=== PATIENT | male | born 1945 | race Caucasian/White ===

== ENCOUNTER 2017-06-26 17:24 | Emergency (ER) | payer MEDICARE ==
[2017-06-26 17:49] LABS: BASOPHILS 0.3 % (0-2); EOSINOPHILS 3.6 % (0-7); HEMATOCRIT 39.9 % (42.0-54.0); HEMOGLOBIN 13.2 g/dL (13.5-17.5); IMMATURE GRANULOCYTES 0.1 % (0-5); LYMPHOCYTES 24.9 % (15-50); MCH 31.6 pg (26.0-34.0); MCHC 33.1 g/dL (31.0-37.0); MCV 95.5 fL (80.0-100.0); MEAN PLATELET VOLUME 8.7 fL (7.4-10.4); MONOCYTES 8.1 % (2-11); RBC 4.18 10x6/uL (4.20-6.10); RDW 13.3 % (11.5-14.5); WBC 7.2 10x3/uL (4.8-10.8)
[2017-06-26 18:08] LABS: ALBUMIN 3.1 g/dL (3.4-5.0); ANION GAP 8.5 mmol/L (8-16); BILIRUBIN - TOTAL 0.5 mg/dL (0.2-1.3); CALCIUM 8.5 mg/dL (8.5-10.1); CARBON DIOXIDE 30.5 mmol/L (21.0-32.0); CREATININE - SERUM 1.4 mg/dL (0.6-1.3); PLATELET COUNT 182 10x3/uL (130-400); PROTEIN - SERUM 6.9 g/dL (6.4-8.2)
[2017-06-26 18:28] LABS: APPEARANCE CLEAR (CLEAR); COLOR YELLOW (YELLOW)
[2017-06-26 18:29] LABS: BILIRUBIN NEGATIVE (NEGATIVE); GLUCOSE NEGATIVE (NEGATIVE); KETONE NEGATIVE (NEGATIVE); NITRITE NEGATIVE (NEGATIVE); PROTEIN NEGATIVE (NEGATIVE); UROBILINOGEN NORMAL (NORMAL)
[2017-09-23 16:23] VITALS: BMI 41.8
== END 2017-06-26 19:14 | disposition home or self-care (01) ==
LOC: D.ER 17:24
PROVIDERS: Nurse Practitioner Acute Care
DX: S43.401A Unspecified sprain of right shoulder joint, initial encounter (principal); W19.XXXA Unspecified fall, initial encounter; Y93.89 Activity, other specified; Y92.029 Unspecified place in mobile home as the place of occurrence of the external cause; I10 Essential (primary) hypertension; B19.20 Unspecified viral hepatitis C without hepatic coma; E11.9 Type 2 diabetes mellitus without complications; F17.200 Nicotine dependence, unspecified, uncomplicated

== ENCOUNTER 2017-09-14 17:28 | Emergency (ER) | payer MEDICARE ==
[2017-09-23 16:23] VITALS: BMI 41.8
== END 2017-09-14 19:44 | disposition home or self-care (01) ==
LOC: D.ER 17:28
DX: G89.4 Chronic pain syndrome (principal); M25.512 Pain in left shoulder; M25.511 Pain in right shoulder; M54.9 Dorsalgia, unspecified; R10.9 Unspecified abdominal pain; I10 Essential (primary) hypertension; B19.20 Unspecified viral hepatitis C without hepatic coma; E11.9 Type 2 diabetes mellitus without complications

== ENCOUNTER 2017-09-22 00:17 | Emergency (ER) | payer MEDICARE, OTHER ==
[2017-09-22 01:13] LABS: BASOPHILS 0.1 % (0-2); EOSINOPHILS 2.3 % (0-7); HEMATOCRIT 42.8 % (42.0-54.0); HEMOGLOBIN 13.7 g/dL (13.5-17.5); IMMATURE GRANULOCYTES 0.3 % (0-5); LYMPHOCYTES 13.3 % (15-50); MCH 30.4 pg (26.0-34.0); MCV 95.1 fL (80.0-100.0); MEAN PLATELET VOLUME 8.9 fL (7.4-10.4); MONOCYTES 5.7 % (2-11); NEUTROPHILS 78.3 % (40-80); RDW 13.9 % (11.5-14.5); WBC 11.6 10x3/uL (4.8-10.8)
[2017-09-22 01:16] LABS: PLATELET COUNT 254 10x3/uL (130-400)
[2017-09-22 01:26] LABS: ALBUMIN 3.2 g/dL (3.4-5.0); ANION GAP 10.2 mmol/L (8-16); BILIRUBIN - TOTAL 0.63 mg/dL (0.2-1.3); CALCIUM 8.4 mg/dL (8.5-10.1); CARBON DIOXIDE 29.8 mmol/L (21.0-32.0); CREATININE - SERUM 1.4 mg/dL (0.6-1.3); PROTEIN - SERUM 6.8 g/dL (6.4-8.2)
[2017-09-23 16:23] VITALS: BMI 41.8
== END 2017-09-22 02:00 | disposition home or self-care (01) ==
LOC: D.ER 00:17
PROVIDERS: Physician Assistant Medical
DX: J06.9 Acute upper respiratory infection, unspecified (principal); J20.9 Acute bronchitis, unspecified; E11.9 Type 2 diabetes mellitus without complications; I10 Essential (primary) hypertension; B19.20 Unspecified viral hepatitis C without hepatic coma

== ENCOUNTER 2017-09-23 00:52 | Inpatient (IN) | payer MEDICARE, OTHER ==
[~2017-09-23] VITALS: Ht 172.7 cm; Wt 131.6 kg
--- NOTE | ~2017-09-23 | CN ---
PATIENT NAME:POPPY ARRIAGA MEDICAL RECORD: [id number] : 49 LOCATION:D. D.2139 ADMIT DATE: 09/23/17 ACCOUNT: [id number] CONSULTING PHYSICIAN: JD MCDANIEL III, MD REFERRING PHYSICIAN: MARTA ZAMAN MD DATE OF CONSULTATION: 09/27/2017 FINDINGS: A 72-year-old male admitted on the with evidence of chronic obstructive pulmonary disease, influenza and altered mental status. The patient has been treated with nebulizers and steroids. He is showing considerable improvement in terms of pulmonary status. COMORBIDITIES: Include hypertension, hyperlipidemia, type 2 diabetes, GERD. At the time of admission, the patient was apparently confused and shows some lability of affect. Notes indicate now the patient is clearing considerably. There does not appear to be a need for psychiatric intervention. ASSESSMENT: Probable subacute delirium - resolving. PLAN: Continue with ongoing medical care. Notify if mental status worsens. TRANSINT:[id number] Voice Confirmation ID: [id number] DOCUMENT ID: [id number] JD MCDANIEL III, MD at 1053 CC: [id number] DICTATION DATE: 09/27/17 1319 SENIOR QUALITY ASSURANCE ANALYST: 09/27/17 1357 ADM IN [facility] [address] [place] [address]
--- NOTE | ~2017-09-23 | EC ---
PATIENT:POPPY ARRIAGA DATE OF SERVICE: 09/23/17 SEX: M MEDICAL RECORD: [id number] DATE OF : 49 LOCATION:D.M2 D.213 AGE OF PATIENT: 72 ADMISSION DATE: 09/23/17 REFERRING PHYSICIAN: INTERPRETING PHYSICIAN: BISHNU CRUZ MD ECHOCARDIOGRAM REPORT ECHO CHARGES 4 ECHO COMPLETE CLINICAL DIAGNOSIS: SOB ECHOCARDIOGRAPHIC MEASUREMENTS (adult normal given) AC root (d.<3.7cm) 3.8 cm LV Septum d (<1.2 cm> 1.5 cm Valve Excursion 1.6 cm LV Septum (systole) 1.9 cm Left Atria (s.<4.0cm> 3.7 cm LVPW d(<1.2cm) 1.9 cm RV (d.<2.3cm) 3.7 cm LVPW (sytole) 2.1 cm LV diastole(<5.6CM) 5.2 cm MV E-F(>70mm/sec) cm LV systole 4.1 cm LVOT Diameter 1.8 cm MV exc.(>10mm) cm Est.ejection fraction (50-75%) % Pericardial Effusion N DOPPLER: LVIT cm/sec A 96.0 cm/sec E 68.0 cm/sec LA cm/sec RVSP mmHg LVOT 85 cm/sec AOP1/2T m/s Asc. Ao 153 cm/sec RVOT cm/sec RA cm/sec PA cm/sec AV Gradient Peak 9.34 mmHg AV Mean 4.88 mmHg AV Area 2.2 cm MV Gradient Peak 6.99 mmHg MV Mean 2.48 mmHg MV Area cm COMMENTS: Charter Boat Captain: Fabrice MENDIOLA Auto Engine Mechanic: Fabrice Joshua TAPE# PACS DATE OF SERVICE: 09/24/2017 Echocardiogram FINDINGS: 1. Left ventricular chamber size is within normal limits. Left ventricular systolic function is normal. Overall ejection fraction estimated at 55%. 2. Left atrium, right atrium, and right ventricular chamber sizes are within normal limits. 3. Valvular structures have normal structure and motion. ECHOCARDIOGRAM REPORT [id number] POPPY ARRIAGA 4. Doppler interrogation reveals no significant valvular insufficiency or stenosis. 5. No evidence of pericardial effusion or left ventricular thrombus. TRANSINT:[id number] Voice Confirmation ID: [id number] DOCUMENT ID: [id number] BISHNU CRUZ MD at 1025 CC: [id number] DICTATION DATE: 09/24/17 1354 SHRIMPING BOAT CAPTAIN: 09/24/17 1439 ADM IN [place] [id number] [place] [address]
[2017-09-23 01:50] LABS: BASOPHILS 0.1 % (0-2); EOSINOPHILS 0.1 % (0-7); HEMATOCRIT 42.6 % (42.0-54.0); IMMATURE GRANULOCYTES 0.2 % (0-5); LYMPHOCYTES 7.9 % (15-50); MCH 31.1 pg (26.0-34.0); MCHC 32.9 g/dL (31.0-37.0); MCV 94.7 fL (80.0-100.0); MEAN PLATELET VOLUME 9.4 fL (7.4-10.4); MONOCYTES 5.4 % (2-11); NEUTROPHILS 86.3 % (40-80); PLATELET COUNT 277 10x3/uL (130-400); RDW 13.8 % (11.5-14.5)
[2017-09-23 01:55] LABS: APPEARANCE CLEAR (CLEAR); BILIRUBIN NEGATIVE (NEGATIVE); COLOR YELLOW (YELLOW); GLUCOSE NEGATIVE (NEGATIVE); KETONE NEGATIVE (NEGATIVE); NITRITE NEGATIVE (NEGATIVE); PROTEIN TRACE mg/dL (NEGATIVE); SPECIFIC GRAVITY 1.015 (1.005-1.020); UROBILINOGEN NORMAL (NORMAL)
[2017-09-23 02:08] LABS: ALBUMIN 3.2 g/dL (3.4-5.0); ALKALINE PHOSPHATASE 98 U/L (46-116); ALT (SGPT) 27 U/L (10-68); BILIRUBIN - TOTAL 0.38 mg/dL (0.2-1.3); CALC OSMOLALITY 283 mosm/kg (275-300); CALCIUM 8.9 mg/dL (8.5-10.1); CHLORIDE - SERUM 101 mmol/L (98-107); CREATININE - SERUM 1.3 mg/dL (0.6-1.3); GLUCOSE 146 mg/dL (74-106); PROTEIN - SERUM 7.2 g/dL (6.4-8.2); SODIUM 138 mmol/L (136-145); UREA NITROGEN 26 mg/dL (7-18); eGFR NON AFRICAN AMERICAN 58 mL/min (90-120)
[2017-09-23 02:23] LABS: CKMB 2.8 U/L (0.0-3.6); CREATINE KINASE 64 UL (21-232); PRO BNP 823 pg/mL (0-125); TROPONIN-I < 0.017 ng/mL (0.000-0.060)
[2017-09-23 07:26] VITALS: BP 168/78; BMI 41.9
[2017-09-23 08:07] VITALS: BP 168/78
[2017-09-23 11:10] VITALS: BP 160/76
[2017-09-23 13:05] VITALS: BMI 41.8
[2017-09-23 15:27] VITALS: BP 168/87
[2017-09-23 16:23] VITALS: Ht 172.7 cm; Wt 131.6 kg
[2017-09-23 20:00] VITALS: BP 175/90
[2017-09-24] VITALS: BP 150/73
[2017-09-24 04:00] VITALS: BP 152/80
[2017-09-24 06:43] LABS: BASOPHILS 0 % (0-2); EOSINOPHILS 0 % (0-7); HEMATOCRIT 41.7 % (42.0-54.0); HEMOGLOBIN 13.6 g/dL (13.5-17.5); IMMATURE GRANULOCYTES 0.5 % (0-5); LYMPHOCYTES 6.4 % (15-50); MCH 30.8 pg (26.0-34.0); MCHC 32.6 g/dL (31.0-37.0); MCV 94.3 fL (80.0-100.0); MEAN PLATELET VOLUME 9.6 fL (7.4-10.4); MONOCYTES 2.3 % (2-11); NEUTROPHILS 90.8 % (40-80); PLATELET COUNT 292 10x3/uL (130-400); RBC 4.42 10x6/uL (4.20-6.10); WBC 13.3 10x3/uL (4.8-10.8)
[2017-09-24 06:47] LABS: HEMOGLOBIN A1C 6.1 % (4.8-6.0)
[2017-09-24 07:01] LABS: ANION GAP 12.9 mmol/L (8-16); BILIRUBIN - TOTAL 0.35 mg/dL (0.2-1.3); CALCIUM 8.6 mg/dL (8.5-10.1); CHOL - HDL RATIO 3.4 ratio (2.3-4.9); CREATININE - SERUM 1.3 mg/dL (0.6-1.3); LDL-HDL RATIO 2.2 ratio (1.5-3.5); MAGNESIUM - SERUM 2.3 mg/dL (1.8-2.4); POTASSIUM - SERUM 3.9 mmol/L (3.5-5.1); PROTEIN - SERUM 6.8 g/dL (6.4-8.2)
[2017-09-24 07:48] VITALS: BP 167/91
[2017-09-24 11:39] VITALS: BP 169/87
[2017-09-24 16:42] VITALS: BP 152/81
[2017-09-24 19:00] VITALS: BP 181/85
[2017-09-25 04:00] VITALS: BP 174/78
[2017-09-25 07:10] LABS: BASOPHILS 0 % (0-2); EOSINOPHILS 0 % (0-7); HEMATOCRIT 42.7 % (42.0-54.0); HEMOGLOBIN 14.1 g/dL (13.5-17.5); IMMATURE GRANULOCYTES 0.4 % (0-5); LYMPHOCYTES 5.3 % (15-50); MCH 30.9 pg (26.0-34.0); MCV 93.4 fL (80.0-100.0); MEAN PLATELET VOLUME 9.3 fL (7.4-10.4); MONOCYTES 3.5 % (2-11); NEUTROPHILS 90.8 % (40-80); PLATELET COUNT 281 10x3/uL (130-400); RBC 4.57 10x6/uL (4.20-6.10); WBC 12.3 10x3/uL (4.8-10.8)
[2017-09-25 07:20] LABS: CALCIUM 8.7 mg/dL (8.5-10.1); CARBON DIOXIDE 28.9 mmol/L (21.0-32.0); CREATININE - SERUM 1.3 mg/dL (0.6-1.3); POTASSIUM - SERUM 3.9 mmol/L (3.5-5.1)
[2017-09-25 08:26] VITALS: BP 172/89
[2017-09-25 11:40] VITALS: BP 193/87
[2017-09-25 16:11] VITALS: BP 208/110
[2017-09-25 19:00] VITALS: BP 182/85
[2017-09-26 01:00] VITALS: BP 164/75
[2017-09-26 03:34] VITALS: BP 175/80
[2017-09-26 06:25] LABS: BASOPHILS 0.1 % (0-2); EOSINOPHILS 0 % (0-7); HEMATOCRIT 41.1 % (42.0-54.0); HEMOGLOBIN 13.6 g/dL (13.5-17.5); IMMATURE GRANULOCYTES 0.5 % (0-5); MCH 30.6 pg (26.0-34.0); MCHC 33.1 g/dL (31.0-37.0); MCV 92.4 fL (80.0-100.0); MEAN PLATELET VOLUME 9.4 fL (7.4-10.4); MONOCYTES 4.5 % (2-11); NEUTROPHILS 88.9 % (40-80); PLATELET COUNT 240 10x3/uL (130-400); RBC 4.45 10x6/uL (4.20-6.10); WBC 10.2 10x3/uL (4.8-10.8)
[2017-09-26 06:48] LABS: PHOSPHOROUS 3.2 mg/dL (2.5-4.9)
[2017-09-26 06:49] LABS: CALCIUM 8.5 mg/dL (8.5-10.1); CARBON DIOXIDE 24.8 mmol/L (21.0-32.0); CREATININE - SERUM 1.4 mg/dL (0.6-1.3); POTASSIUM - SERUM 3.8 mmol/L (3.5-5.1)
[2017-09-26 08:32] VITALS: BP 199/108
[2017-09-26 11:24] VITALS: BP 165/93
[2017-09-26 15:46] VITALS: BP 175/91
[2017-09-26 20:00] VITALS: BP 123/104
[2017-09-27] VITALS: BP 146/73
[2017-09-27 07:55] VITALS: BP 137/77
[2017-09-27 12:00] VITALS: BP 146/61
[2017-09-27 16:17] VITALS: BP 150/70
[2017-09-27] MEDS ORDERED: ASPIRIN81 MG PO (17:51)
[2017-09-27] MEDS ORDERED: TESSALON PERLE100 MG PO (17:52)
[2017-09-27] MEDS ORDERED: SURFAK240 MG PO (17:52)
[2017-09-27] MEDS ORDERED: CYCLOBENZAPRINE10 MG PO (17:52)
[2017-09-27] MEDS ORDERED: GLIMEPIRIDE2 MG PO (17:53)
[2017-09-27] MEDS ORDERED: FUROSEMIDE40 MG PO (17:53)
[2017-09-27] MEDS ORDERED: HYDROCODON-ACE1 EAC7 PO (17:55)
[2017-09-27] MEDS ORDERED: ZESTORETIC 10/11 TAB PO (18:07)
[2017-09-27] MEDS ORDERED: GLUCOPHAGE1000 MG PO (18:09)
[2017-09-27] MEDS ORDERED: NAPROSYN500 MG PO (18:09)
[2017-09-27] MEDS ORDERED: CLARITIN-D1 TAB.SR . PO (18:09)
[2017-09-27] MEDS ORDERED: OMEPRAZOLE20 M1 PO (18:10)
[2017-09-27] MEDS ORDERED: OXYCONTIN10 MG PO (18:10)
[2017-09-27] MEDS ORDERED: ZOCOR10 MG PO (18:11)
[2017-09-27] MEDS ORDERED: ULTRAM50 MG PO (18:11)
[2017-09-27] MEDS ORDERED: VALIUM 2 MG TAB2 MG PO (18:12)
[2017-09-27 19:00] VITALS: BP 195/109
[2017-09-28 04:00] VITALS: BP 172/92
[2017-09-28 06:30] LABS: BASOPHILS 0.4 % (0-2); EOSINOPHILS 2.5 % (0-7); HEMATOCRIT 41.5 % (42.0-54.0); HEMOGLOBIN 13.5 g/dL (13.5-17.5); IMMATURE GRANULOCYTES 0.8 % (0-5); LYMPHOCYTES 27.9 % (15-50); MCH 30.8 pg (26.0-34.0); MCHC 32.5 g/dL (31.0-37.0); MCV 94.7 fL (80.0-100.0); MEAN PLATELET VOLUME 9.5 fL (7.4-10.4); MONOCYTES 7.5 % (2-11); NEUTROPHILS 60.9 % (40-80); RBC 4.38 10x6/uL (4.20-6.10); RDW 14.3 % (11.5-14.5); WBC 10.7 10x3/uL (4.8-10.8)
[2017-09-28 06:51] LABS: PLATELET COUNT 191 10x3/uL (130-400)
[2017-09-28 06:56] LABS: ANION GAP 12.7 mmol/L (8-16); CREATININE - SERUM 1.3 mg/dL (0.6-1.3); POTASSIUM - SERUM 3.7 mmol/L (3.5-5.1)
[2017-09-28 08:46] VITALS: BP 161/94
[2017-09-28 11:23] VITALS: BP 162/80
[2017-09-28 15:39] VITALS: BP 166/83
[2017-09-28 18:10] LABS: AEROBE ID Final report (())
[2017-09-28 20:00] VITALS: BP 150/88
[2017-09-29] VITALS: BP 143/82
[2017-09-29 04:00] VITALS: BP 179/98
[2017-09-29 08:28] VITALS: BP 149/80
[2017-09-29 11:38] VITALS: BP 142/80
[2017-09-29 12:35] LABS: BASOPHILS 0.1 % (0-2); EOSINOPHILS 0.7 % (0-7); HEMATOCRIT 43.2 % (42.0-54.0); HEMOGLOBIN 14.1 g/dL (13.5-17.5); IMMATURE GRANULOCYTES 0.6 % (0-5); LYMPHOCYTES 11.3 % (15-50); MCH 30.7 pg (26.0-34.0); MCHC 32.6 g/dL (31.0-37.0); MCV 94.1 fL (80.0-100.0); MEAN PLATELET VOLUME 9.7 fL (7.4-10.4); MONOCYTES 4.7 % (2-11); NEUTROPHILS 82.6 % (40-80); PLATELET COUNT 224 10x3/uL (130-400); RBC 4.59 10x6/uL (4.20-6.10); RDW 14.1 % (11.5-14.5)
[2017-09-29 12:36] LABS: WBC 15.3 10x3/uL (4.8-10.8)
[2017-09-29 12:47] LABS: ANION GAP 12.2 mmol/L (8-16); CALCIUM 7.7 mg/dL (8.5-10.1); CARBON DIOXIDE 26.5 mmol/L (21.0-32.0); CREATININE - SERUM 1.2 mg/dL (0.6-1.3); POTASSIUM - SERUM 3.7 mmol/L (3.5-5.1)
[2017-09-29 15:18] VITALS: BP 158/82
[2017-09-29 19:00] VITALS: BP 152/76
[2017-09-30 04:00] VITALS: BP 136/90
[2017-09-30 08:18] VITALS: BP 148/68
[2017-09-30 11:11] VITALS: BP 151/72
[2017-09-30 15:32] LABS: BASOPHILS 0.1 % (0-2); EOSINOPHILS 1.3 % (0-7); HEMOGLOBIN 13.4 g/dL (13.5-17.5); IMMATURE GRANULOCYTES 0.6 % (0-5); LYMPHOCYTES 25.5 % (15-50); MCH 30.9 pg (26.0-34.0); MCHC 32.7 g/dL (31.0-37.0); MCV 94.7 fL (80.0-100.0); MEAN PLATELET VOLUME 9.5 fL (7.4-10.4); MONOCYTES 6.9 % (2-11); NEUTROPHILS 65.6 % (40-80); PLATELET COUNT 219 10x3/uL (130-400); RBC 4.33 10x6/uL (4.20-6.10); RDW 14.2 % (11.5-14.5); WBC 12.7 10x3/uL (4.8-10.8)
[2017-09-30 15:42] LABS: ANION GAP 14.2 mmol/L (8-16); CALCIUM 7.8 mg/dL (8.5-10.1); CARBON DIOXIDE 25.6 mmol/L (21.0-32.0); CREATININE - SERUM 1.4 mg/dL (0.6-1.3); POTASSIUM - SERUM 3.8 mmol/L (3.5-5.1)
[2017-09-30 21:54] VITALS: BP 143/71
[2017-10-01 01:14] VITALS: BP 188/91
[2017-10-01 06:08] VITALS: BP 135/70
[2017-10-01 09:18] VITALS: BP 141/80
[2017-10-01] MEDS ORDERED: BACTRIM DS TABL1 TAB PO (11:03)
[2017-10-01 20:09] LABS: IMMUNOGLOBULIN E 1629 IU/mL (0-100)
== END 2017-10-01 13:50 | disposition home or self-care (01) | DRG 177 ==
LOC: D.ER 00:52 → D.M2 06:18
PROVIDERS: Family Medicine; Internal Medicine Nephrology; Internal Medicine Pulmonary Disease
DX: J10.08 Influenza due to other identified influenza virus with other specified pneumonia (principal); J96.21 Acute and chronic respiratory failure with hypoxia; J15.6 Pneumonia due to other Gram-negative bacteria; J98.11 Atelectasis; Z68.41 Body mass index [BMI] 40.0-44.9, adult; F05 Delirium due to known physiological condition; J15.20 Pneumonia due to staphylococcus, unspecified; J15.4 Pneumonia due to other streptococci; J44.0 Chronic obstructive pulmonary disease with (acute) lower respiratory infection; J44.1 Chronic obstructive pulmonary disease with (acute) exacerbation; E11.21 Type 2 diabetes mellitus with diabetic nephropathy; B19.20 Unspecified viral hepatitis C without hepatic coma; E66.01 Morbid (severe) obesity due to excess calories; K21.9 Gastro-esophageal reflux disease without esophagitis; E78.5 Hyperlipidemia, unspecified; I10 Essential (primary) hypertension; Z91.11 Patient's noncompliance with dietary regimen; J30.9 Allergic rhinitis, unspecified; M41.9 Scoliosis, unspecified; M81.0 Age-related osteoporosis without current pathological fracture

== ENCOUNTER 2017-10-01 22:18 | Emergency (ER) | payer MEDICARE, OTHER ==
[2017-09-23 16:23] VITALS: BMI 41.8
[~2017-10-01 22:18] MED LIST: ASPIRIN81 MG PO; BACTRIM DS TABL1 TAB PO; CLARITIN-D1 TAB.SR . PO; CYCLOBENZAPRINE10 MG PO; FUROSEMIDE40 MG PO; GLIMEPIRIDE2 MG PO; GLUCOPHAGE1000 MG PO; HYDROCODON-ACE1 EAC7 PO; NAPROSYN500 MG PO; OMEPRAZOLE20 M1 PO; OXYCONTIN10 MG PO; SURFAK240 MG PO; TESSALON PERLE100 MG PO; ULTRAM50 MG PO; VALIUM 2 MG TAB2 MG PO; ZESTORETIC 10/11 TAB PO; ZOCOR10 MG PO
[2017-10-02 01:02] LABS: BASOPHILS 0 % (0-2); EOSINOPHILS 1.4 % (0-7); HEMOGLOBIN 14.1 g/dL (13.5-17.5); IMMATURE GRANULOCYTES 0.7 % (0-5); LYMPHOCYTES 23.3 % (15-50); MCH 30.9 pg (26.0-34.0); MCHC 32.8 g/dL (31.0-37.0); MCV 94.3 fL (80.0-100.0); MEAN PLATELET VOLUME 9.8 fL (7.4-10.4); MONOCYTES 6.6 % (2-11); PLATELET COUNT 213 10x3/uL (130-400); RBC 4.56 10x6/uL (4.20-6.10); RDW 14.4 % (11.5-14.5); WBC 12.2 10x3/uL (4.8-10.8)
[2017-10-02 01:19] LABS: ANION GAP 11.6 mmol/L (8-16); BILIRUBIN - TOTAL 0.9 mg/dL (0.2-1.3); CALCIUM 7.8 mg/dL (8.5-10.1); CARBON DIOXIDE 26.2 mmol/L (21.0-32.0); CREATININE - SERUM 1.3 mg/dL (0.6-1.3); POTASSIUM - SERUM 3.8 mmol/L (3.5-5.1); PROTEIN - SERUM 6.4 g/dL (6.4-8.2)
== END 2017-10-02 02:40 | disposition home or self-care (01) ==
LOC: D.ER 22:18
PROVIDERS: Emergency Medicine
DX: J18.9 Pneumonia, unspecified organism (principal); J44.9 Chronic obstructive pulmonary disease, unspecified; I10 Essential (primary) hypertension; B19.20 Unspecified viral hepatitis C without hepatic coma; E11.9 Type 2 diabetes mellitus without complications

== ENCOUNTER 2017-10-02 16:32 | Emergency (ER) | payer MEDICARE, OTHER ==
[2017-09-23 16:23] VITALS: BMI 41.8
[2017-10-02 18:18] LABS: BASOPHILS 0 % (0-2); EOSINOPHILS 1.4 % (0-7); HEMATOCRIT 41.9 % (42.0-54.0); HEMOGLOBIN 13.4 g/dL (13.5-17.5); IMMATURE GRANULOCYTES 0.5 % (0-5); LYMPHOCYTES 18.5 % (15-50); MCH 30.5 pg (26.0-34.0); MCV 95.4 fL (80.0-100.0); MEAN PLATELET VOLUME 9.5 fL (7.4-10.4); MONOCYTES 5.7 % (2-11); NEUTROPHILS 73.9 % (40-80); PLATELET COUNT 205 10x3/uL (130-400); RBC 4.39 10x6/uL (4.20-6.10); RDW 14.3 % (11.5-14.5); WBC 11.7 10x3/uL (4.8-10.8)
== END 2017-10-02 23:30 | disposition home or self-care (01) ==
LOC: D.ER 16:32
PROVIDERS: Family Medicine
DX: J06.9 Acute upper respiratory infection, unspecified (principal); M54.5 Low back pain; J44.9 Chronic obstructive pulmonary disease, unspecified; I10 Essential (primary) hypertension; B19.20 Unspecified viral hepatitis C without hepatic coma; E11.9 Type 2 diabetes mellitus without complications

== ENCOUNTER 2017-10-04 18:22 | Emergency (ER) | payer MEDICARE, OTHER ==
[2017-09-23 16:23] VITALS: BMI 41.8
== END 2017-10-04 22:32 | disposition home or self-care (01) ==
LOC: D.ER 18:22
DX: J44.1 Chronic obstructive pulmonary disease with (acute) exacerbation (principal); E11.9 Type 2 diabetes mellitus without complications

== ENCOUNTER 2017-11-29 18:44 | Emergency (ER) | payer MEDICARE, OTHER ==
[2017-09-23 16:23] VITALS: BMI 41.8
== END 2017-11-29 21:44 | disposition home or self-care (01) ==
LOC: D.ER 18:44
DX: M25.511 Pain in right shoulder (principal); M54.16 Radiculopathy, lumbar region; M25.512 Pain in left shoulder; J44.9 Chronic obstructive pulmonary disease, unspecified; B19.20 Unspecified viral hepatitis C without hepatic coma; E11.9 Type 2 diabetes mellitus without complications

== ENCOUNTER 2017-12-02 01:24 | Emergency (ER) | payer OTHER ==
[2017-09-23 16:23] VITALS: BMI 41.8
== END 2017-12-02 02:35 | disposition home or self-care (01) ==
LOC: D.ER 01:24
DX: M54.5 Low back pain (principal); G89.29 Other chronic pain; J44.9 Chronic obstructive pulmonary disease, unspecified; E11.9 Type 2 diabetes mellitus without complications; B19.20 Unspecified viral hepatitis C without hepatic coma

== ENCOUNTER 2017-12-28 18:47 | Emergency (ER) | payer OTHER ==
[2017-09-23 16:23] VITALS: BMI 41.8
[2017-12-28 21:42] LABS: BASOPHILS 0.1 % (0-2); EOSINOPHILS 3.6 % (0-7); HEMATOCRIT 43.9 % (42.0-54.0); HEMOGLOBIN 14.4 g/dL (13.5-17.5); IMMATURE GRANULOCYTES 0.1 % (0-5); LYMPHOCYTES 26.7 % (15-50); MCHC 32.8 g/dL (31.0-37.0); MCV 94.6 fL (80.0-100.0); MEAN PLATELET VOLUME 9.5 fL (7.4-10.4); MONOCYTES 6.1 % (2-11); NEUTROPHILS 63.4 % (40-80); PLATELET COUNT 228 10x3/uL (130-400); RBC 4.64 10x6/uL (4.20-6.10); RDW 13.5 % (11.5-14.5); WBC 8.8 10x3/uL (4.8-10.8)
[2017-12-28 22:02] LABS: ALBUMIN 3.2 g/dL (3.4-5.0); ANION GAP 12.3 mmol/L (8-16); BILIRUBIN - TOTAL 0.86 mg/dL (0.2-1.3); CALCIUM 8.6 mg/dL (8.5-10.1); CARBON DIOXIDE 27.5 mmol/L (21.0-32.0); CREATININE - SERUM 1.3 mg/dL (0.6-1.3); POTASSIUM - SERUM 3.8 mmol/L (3.5-5.1); PROTEIN - SERUM 7.1 g/dL (6.4-8.2)
[2017-12-28 22:32] LABS: APPEARANCE CLEAR (CLEAR); BILIRUBIN NEGATIVE (NEGATIVE); COLOR YELLOW (YELLOW); GLUCOSE NEGATIVE (NEGATIVE); KETONE NEGATIVE (NEGATIVE); NITRITE NEGATIVE (NEGATIVE); PROTEIN NEGATIVE (NEGATIVE); SPECIFIC GRAVITY 1.015 (1.005-1.020); UROBILINOGEN NORMAL (NORMAL)
[2017-12-28 22:53] LABS: INR 1.1 (0.85-1.17); PROTIME 13.8 SECONDS (11.6-15.0)
[2017-12-28 22:55] LABS: APTT 29.2 SECONDS (22.8-39.4)
[2017-12-28 22:56] LABS: D-DIMER-QUANTITATIVE 0.72 ug/mLFEU (0.20-0.54)
[2017-12-28 23:05] LABS: CKMB 1.8 U/L (0.0-3.6); CREATINE KINASE 64 UL (21-232); TROPONIN-I < 0.017 ng/mL (0.000-0.060)
== END 2017-12-29 00:19 | disposition home or self-care (01) ==
LOC: D.ER 18:47
PROVIDERS: Family Medicine
DX: M79.1 Myalgia (principal); M19.011 Primary osteoarthritis, right shoulder; S46.001A Unspecified injury of muscle(s) and tendon(s) of the rotator cuff of right shoulder, initial encounter; X58.XXXA Exposure to other specified factors, initial encounter; Y93.89 Activity, other specified; Y92.89 Other specified places as the place of occurrence of the external cause; M54.5 Low back pain; J44.9 Chronic obstructive pulmonary disease, unspecified; E11.9 Type 2 diabetes mellitus without complications; B19.20 Unspecified viral hepatitis C without hepatic coma

== ENCOUNTER 2018-02-16 00:52 | Emergency (ER) | payer MEDICARE, OTHER ==
[~2018-02-16] VITALS: Ht 172.7 cm; Wt 113.6 kg
[2018-02-16 00:57] VITALS: Ht 172.7 cm; Wt 113.6 kg
[2018-02-16] MEDS ORDERED: DIFLUCAN200 MG PO (01:46)
[2018-02-16] MEDS ORDERED: NYSTATIN1 PWD TOPICAL (01:46)
[2018-02-16 02:35] VITALS: BP 138/74
== END 2018-02-16 02:35 | disposition home or self-care (01) ==
LOC: D.ER 00:52
DX: B35.4 Tinea corporis (principal); L98.8 Other specified disorders of the skin and subcutaneous tissue; M25.512 Pain in left shoulder; E11.9 Type 2 diabetes mellitus without complications; B19.20 Unspecified viral hepatitis C without hepatic coma; I10 Essential (primary) hypertension; J44.9 Chronic obstructive pulmonary disease, unspecified

== ENCOUNTER 2018-05-29 00:43 | Emergency (ER) | payer MEDICARE, OTHER ==
[~2018-05-29] VITALS: Ht 172.7 cm; Wt 116.8 kg
[~2018-05-29 00:43] MED LIST changes: +DIFLUCAN200 MG PO; +NYSTATIN1 PWD TOPICAL
[2018-05-29 00:44] VITALS: Ht 172.7 cm; Wt 116.8 kg
[2018-05-29] MEDS ORDERED: LIORESAL 10 MG10 MG (00:57)
[2018-05-29] MEDS ORDERED: MOBIC7.5 MG PO (00:57)
[2018-05-29] MEDS ORDERED: CYCLOBENZAPRINE10 MG (00:57)
[2018-05-29] MEDS ORDERED: NAPROSYN500 MG (00:58)
[2018-05-29 01:19] LABS: BASOPHILS 0.2 % (0-2); EOSINOPHILS 4.3 % (0-7); HEMATOCRIT 40.2 % (42.0-54.0); HEMOGLOBIN 13.3 g/dL (13.5-17.5); IMMATURE GRANULOCYTES 0.1 % (0-5); LYMPHOCYTES 23.5 % (15-50); MCH 30.4 pg (26.0-34.0); MCHC 33.1 g/dL (31.0-37.0); MEAN PLATELET VOLUME 8.9 fL (7.4-10.4); MONOCYTES 7.4 % (2-11); NEUTROPHILS 64.5 % (40-80); PLATELET COUNT 196 10x3/uL (130-400); RBC 4.37 10x6/uL (4.20-6.10); RDW 13.6 % (11.5-14.5); WBC 8.8 10x3/uL (4.8-10.8)
[2018-05-29 01:30] LABS: APTT 28.1 SECONDS (22.8-39.4); INR 1.13 (0.85-1.17); PROTIME 14.1 SECONDS (11.6-15.0)
[2018-05-29 01:34] LABS: ALKALINE PHOSPHATASE 113 U/L (46-116); ALT (SGPT) 13 U/L (10-68); BILIRUBIN - TOTAL 0.53 mg/dL (0.2-1.3); CALC OSMOLALITY 274 mosm/kg (275-300); CALCIUM 8.2 mg/dL (8.5-10.1); CARBON DIOXIDE 30.9 mmol/L (21.0-32.0); CHLORIDE - SERUM 103 mmol/L (98-107); CREATININE - SERUM 1.3 mg/dL (0.6-1.3); GLUCOSE 112 mg/dL (74-106); POTASSIUM - SERUM 4.7 mmol/L (3.5-5.1); PROTEIN - SERUM 6.7 g/dL (6.4-8.2); SODIUM 136 mmol/L (136-145); UREA NITROGEN 17 mg/dL (7-18); eGFR NON AFRICAN AMERICAN 58 mL/min (90-120)
[2018-05-29 01:38] LABS: D-DIMER-QUANTITATIVE 6.17 ug/mLFEU (0.20-0.54)
[2018-05-29 01:41] LABS: C-REACTIVE PROTEIN 1.2 mg/dL (0.0-0.9); PRO BNP 536 pg/mL (0-125); TROPONIN-I < 0.017 ng/mL (0.000-0.060)
[2018-05-29 06:09] VITALS: BP 142/80
== END 2018-05-29 06:31 | disposition short-term general hospital (02) ==
LOC: D.ER 00:43
PROVIDERS: Family Medicine
DX: I82.401 Acute embolism and thrombosis of unspecified deep veins of right lower extremity (principal); E11.9 Type 2 diabetes mellitus without complications; B19.20 Unspecified viral hepatitis C without hepatic coma; J44.9 Chronic obstructive pulmonary disease, unspecified